=== PATIENT | male | born 1985 | race Caucasian/White ===

== ENCOUNTER 2017-07-26 15:00 | Emergency (ER) | payer OTHER ==
[2017-07-26 15:13] VITALS: BP 131/80; PULSE 70; TEMP 98.8; BMI 25.1
--- NOTE | 2017-07-26 15:41 | PDOC ---
History of Present Illness - General Chief Complaint: Sore Throat Stated Complaint: FEVER/SORE THROAT Time Seen by Provider: 07/26/17 15:19 History Source: Patient Exam Limitations: No Limitations (32y/o M with sorethroat and fever X 2 days) Past History - Travel Close contact w/someone who was outside of country & ill: No - Past Medical History Allergies/Adverse Reactions: Allergies Allergy/AdvReac Type Severity Reaction Status Date / Time No Known Allergies Allergy Verified 07/26/17 15:10 Home Medications: Ambulatory Orders Amoxicillin - [Amoxicillin 500mg Capsule -] 500 mg PO BID #14 capsule 07/26/17 Ibuprofen 600 mg PO ACDIN 7 Days #21 tablet 07/26/17 COPD: No Other medical history: DENIES. - Suicide/Smoking/Psychosocial Hx Smoking History: Never smoked Review of Systems - Review of Systems Is the patient limited Citizen [place] proficient: No Constitutional: Yes: Fever. No: Chills HEENTM: Yes: Ear Pain, Throat Pain, Throat Swelling. No: Nose Pain, Nose Congestion, Difficulty Swallowing, Mouth Swelling Respiratory: No: Cough, Orthopnea, Shortness of Breath, SOB at Rest, Wheezing Cardiac (ROS): No: Chest Pain ABD/GI: No: Abdominal Distended : No: Burning, Dysuria, Discharge Neurological: No: Headache *Physical Exam - Vital Signs Last Vital Signs Temp Pulse Resp BP Pulse Ox 98.8 F 70 19 131/80 100 07/26/17 15:10 07/26/17 15:10 07/26/17 15:10 07/26/17 15:10 07/26/17 15:10 - Physical Exam General Appearance: Yes: Nourished HEENT: positive: EOMI, TMs Normal, Pharyngeal Erythema, Tonsillar Exudate, Tonsillar Erythema. negative: Muffled/Hoarse voice Neck: positive: Supple Respiratory/Chest: positive: Lungs Clear, Normal Breath Sounds Cardiovascular: positive: Regular Rhythm, Regular Rate, S1, S2 Integumentary: positive: Normal Color Neurologic: positive: supply technician II-XII NML intact, Fully Oriented, Alert Medical Decision Making - Medical Decision Making 07/26/17 15:33 32y/o M with h/o sorethroat, fever X 2 days, denies cough, SOB, no drooling exam consistent with pharyngeal erythema/swelling, no [facility] REP RS pending motrin for fever 07/26/17 16:25 RS + Rx for amoxicillin sent to pharmacy motrin prn pain 07/26/17 16:26 07/26/17 16:26 *DC/Admit/Observation/Transfer Diagnosis at time of Disposition: Strep pharyngitis - Discharge Dispostion Disposition: HOME Condition at time of disposition: Good Decision to Admit order: No - Prescriptions Prescriptions: Amoxicillin - [Amoxicillin 500mg Capsule -] 500 mg PO BID #14 capsule Ibuprofen 600 mg PO ACDIN 7 Days #21 tablet - Referrals - Patient Instructions Printed Discharge Instructions: DI for Strep Throat - Post Discharge Activity
[2017-07-26] MEDS ORDERED: IBUPROFEN 400 MG TABLET (FP) PO ONE ×2 (16:07→16:09)
== END 2017-07-26 16:11 | disposition home or self-care (01) ==
LOC: JERFT 15:00
DX: J02.0 Streptococcal pharyngitis (principal); B95.0 Streptococcus, group A, as the cause of diseases classified elsewhere
CPT/HCPCS: 87070; 87077; 87430; 99281-25